=== PATIENT | male | born 1960 | race Caucasian/White ===

== ENCOUNTER 2018-10-02 15:32 | Inpatient (IN) ==
[2018-10-02] MEDS ORDERED: DUONEB (A & A) INH ONE (15:54)
[2018-10-02 16:24] LABS: BASO# 0.04 X1000 (0.0-0.2); BASO% 0.4 % (0.0-0.8); EOS% 6.2 % (0.0-10.0); HEMATOCRIT 40.2 % (42.0-52.0); HEMOGLOBIN 13.5 g/dL (14.0-18.0); IMM GRAN# 0.02 X1000 (0.0-0.04); IMM GRAN% 0.2 % (0.0-0.5); LYMPH# 1.61 X1000 (1.2-3.4); LYMPH% 16.5 % (20.5-51.1); MCH 31.9 PG (27-31); MCHC 33.6 g/dL (33-37); MONO# 0.67 X1000 (0.11-0.59); MONO% 6.9 % (1.7-9.3); MPV 8.7 FL (7.4-10.4); NEUT% 69.8 % (42.2-75.2); PLT 244 X1000 (130-400); RBC 4.23 XMIL (4.7-6.1); RDW 14.2 % (11.5-14.5); WBC 9.74 X1000 (4.8-10.8)
[2018-10-02 16:29] LABS: INR 0.93; PROTIME 12.9 Seconds (11.0-16.0)
[2018-10-02 16:30] LABS: PTT 29.2 Seconds (22.3-41.8)
[2018-10-02] MEDS ORDERED: SOLU-MEDROL IV ONE (16:30)
[2018-10-02 16:39] LABS: AGAP 15; ALBUMIN 3.8 g/dL (3.5-5.0); ALKALINE PHOSPHATASE 88 U/L (32-122); BUN 13 mg/dL (8-22); CALCIUM 8.5 mg/dL (8.8-10.2); CHLORIDE 99 mmol/L (98-107); COSMO 272; CREATININE 0.7 mg/dL (0.7-1.2); ESTIMATED GFR > 60; GLUCOSE 103 mg/dL (70-104); GOT 22 U/L (10-34); GPT 12 U/L (10-44); POTASSIUM 4.4 mmol/L (3.5-5.1); SODIUM 136 mmol/L (136-145); TCO2 23 mmol/L (25-35)
--- NOTE | 2018-10-02 17:01 | Diag Imaging Result Doc PS360 ---
CHEST-2 VIEWS - 10/02/2018 INDICATION: cough COMPARISON: 08/05/2018 FINDINGS: There is a stable calcified granuloma in the left lower lobe. The lungs are clear. Heart size is normal. No pneumothorax or pleural effusion. IMPRESSION: Negative exam. Electronically signed by Mateo Arias 10/02/2018 4:59 PM
[2018-10-02 17:15] LABS: CK INDEX 3.6 (0.0-2.5); CK PROFILE 481 U/L (24-204); CK-MB 17.09 ng/mL (0.0-5.0)
[2018-10-02 17:27] LABS: BE 2.4 mmoll (-3.0-3.0); BLOOD TYPE ARTERIAL; HCO3-(ACT) 26.6 mmoll (20.0-26.0); METHB 1.3 % (0.0-1.5); O2(CT) 17.4 mL/dL (15.0-23.0); O2HB 90.9 % (95.0-99.0); PCO2(98.6) 42 mmHg (35-45); PO2(98.6) 60 mmHg (60-100); SAMPLE BLOOD; SAO2 94.4 % (95.0-100.0); THB 13.6 g/dL (11.5-17.4); pH(98.6) 7.42 (7.35-7.45)
[2018-10-02 17:30] LABS: ALLEN TEST YES; MODALITY ROOM AIR
--- NOTE | 2018-10-02 17:57 | PROVIDER DOCUMENTATION ---
This chart was entered by Hazel Fuchs Scribe, acting as scribe for Fredis Arnett CRNP. HPI-Respiratory General - General Chief Complaint: Cough Stated Complaint: COUGHING/COPD Time Seen by Provider: 10/02/18 15:50 Source: patient Allergies/Adverse Reactions: Patient Allergies Allergy/AdvReac Type Severity Reaction Status Date / Time No Known Allergies Allergy Verified 08/05/18 19:41 Home Medications: Home Medication List Medication Instructions Recorded Confirmed Last Taken Type Lisinopril/Hydrochlorothiazide 1 tab PO BID 02/12/17 08/05/18 08/02/18 10:00 History [Lisinopril-Hctz 20-12.5 mg Tab] Ibuprofen [Motrin] 600 mg PO Q6-8H PRN PRN #30 tab 12/01/17 08/05/18 Unknown Rx Omeprazole 20 mg PO DAILY #20 tablet. 01/18/18 08/05/18 08/02/18 10:00 Rx Albuterol Sulfate [Proventil Hfa] 2 puff IH Q4HR PRN #1 [email or web address] 03/21/18 08/05/18 08/05/18 19:30 Rx Hydrocodone/Acetaminophen [[place] 1 ea PO Q4-6H PRN PRN 7 Days #15 08/05/18 Unknown Rx 7.5-325 Tablet] tab - History of Present Illness-Resp Nature of Presenting Problem: 58 y/o male presents to ED with cough, SOB, chest wall pain, hoarseness, and chills onset 2 months ago. Pt reports he had a breathing treatment this morning. Pt is alert and oriented. Quality of Pain: reports: aching Severity in ED: reports: mild Onset/Duration: reports: other (2 months ago) Timing: reports: still present Context: reports: other (hx COPD) Exposure: reports: other (hx COPD) Cough Quality/Degree: reports: moderate Episode Frequency: chronic episodes (hx COPD) Current Respiratory Medication Therapy: Initiated see nurses note Modifying Factors: improves with: nothing Associated Symptoms: reports: chest pain/soreness, cough, fever/chills, shortness of breath, short of breath, other (hoarse) Similar Symptoms Previously?: No Recently seen or treated by another doctor?: No Review of Systems - Adult - REVIEW OF SYSTEMS - ADULT Constitutional: reports: chills. denies: fever Eyes: reports: no symptoms reported Ears, Nose, Mouth & Throat: reports: hoarseness. denies: epistaxis Cardiovascular: denies: chest pain, palpitations Respiratory: reports: cough, shortness of breath Gastrointestinal: denies: abdominal pain, diarrhea, nausea, vomiting Genitourinary: reports: no symptoms reported Musculoskeletal: reports: other (chest wall pain). denies: back pain, joint pain Integumentary: reports: no symptoms reported Neurological: denies: dizziness/vertigo, seizure Psychiatric: reports: no symptoms reported Endocrine: reports: no symptoms reported Hematologic/Lymphatic: reports: no symptoms reported Allergic/Immunologic: reports: no symptoms reported All Other Systems: Reviewed and Negative Past History - Adult - PAST MEDICAL HISTORY-ADULT Review of Records: reports: Old Records Reviewed, Nursing Assessment Review, Medications Reviewed Major Childhood Illnesses: reports: denies history Cardiovascular: reports: blood clots, HTN. denies: cardiac disease Respiratory: reports: asthma, COPD Gastrointestinal: reports: GERD, hepatitis (C) Obstetrical/Gynecological: reports: denies history Genitourinary: reports: cancer (bladder), chronic UTI's, other (blood clots) Musculoskeletal: reports: chronic pain Neurological: reports: denies history Endocrine/Immune: reports: denies history. denies: Diabetes Other Conditions: reports: denies history - PRIOR SURGERIES/PROCEDURES Surgical/Procedure History: reports: recent surgery, orthopedic (extremity) (knee; R hand), other (malignant tumor removed from bladder) - IMMUNIZATION STATUS Childhood Immunizations: See Nurse Assessment Flu Vaccine: See Nurse Assessment - FAMILY HISTORY Family History: reviewed, not pertinent - SOCIAL HISTORY Smoking: less than 1 pack/day Provider spent 3-5 mins advising pt. on dangers of tobacco.: Discussed manners to quit use, and f/u contacts for add'l counseling. Substance Use: none/never Alcohol Use Frequency: never Living Situation: family Physical Exam-General - PHYSICAL EXAM-ADULT Initial Vital Signs Reviewed: Yes - CONSTITUTIONAL General Appearance: appears well, alert, moderate distress - EYES Eyes: PERRL/EOMI, pink conjunctivae - HEAD, EARS, NOSE, MOUTH & THROAT HENMT: normocephalic/atraumatic, moist mucous membranes, normal ENT inspection - NECK Neck: non-tender, full range of motion - RESPIRATORY Respiratory: chest non-tender, normal breath sounds, wheezing - CARDIOVASCULAR Cardiovascular: normal peripheral pulses, regular rate, rhythm - GASTROINTESTINAL (ABDOMEN) Abdominal Exam: normal bowel sounds, non tender, soft - MUSCULOSKELETAL Back Exam: normal inspection, no CVA tenderness Extremity: normal range of motion, non-tender, normal gait, swelling (chronic 2 plus pitting bilateral lower extremity edema) - SKIN Integumentary: normal color, warm/dry - NEUROLOGIC Neurologic: grossly normal - PSYCHIATRIC Psych/Mental Status: normal mood/affect, normal thought content, normal thought process - HEART Score HEART Score: History: Slightly Suspicious HEART Score: Age: 45-65 Years HEART Score: Risk Factors for Atherosclerotic Disease: > or = 3 Risk Factors or History of Atherosclerotic Disease HEART Score: Troponin: < or = Normal Limit Progress - PLAN OF CARE/RESULTS Progress/Plan/Lab Results: Vital Signs - 8 hr 10/02/18 15:35 10/02/18 16:07 10/02/18 17:15 Temperature 98.9 F 98.9 F Pulse Rate 90 88 92 H Respiratory Rate 24 24 24 Blood Pressure 185/97 166/58 O2 Sat by Pulse Oximetry 95 93 L 91 L Laboratory Results - last 24 hr 10/02/18 10/02/18 10/02/18 15:50 15:50 15:50 WBC 9.74 RBC 4.23 L Hgb 13.5 L Hct 40.2 L MCV 95.0 MCH 31.9 H MCHC 33.6 RDW Std Deviation 14.2 Plt Count 244 MPV 8.7 Immature Gran % (Auto) 0.2 Neut % (Auto) 69.8 Lymph % (Auto) 16.5 L [place] % (Auto) 6.9 Eos % (Auto) 6.2 Baso % (Auto) 0.4 Immature Gran # (Auto) 0.02 Neut # (Auto) 6.80 H Lymph # (Auto) 1.61 [place] # (Auto) 0.67 H Eos # (Auto) 0.60 Baso # (Auto) 0.04 PT INR PTT (Actin FS) Specimen Type Sample Site pH pCO2 pO2 HCO3 Base Excess Oxyhemoglobin ABG O2 Sat (Calculated) ABG O2 Saturation ABG Carboxyhemoglobin ABG Methemoglobin William Test A-a O2 Difference Total Hemoglobin Lactate Blood Gas Modality FiO2 % Sodium 136 Potassium 4.4 Chloride 99 Carbon Dioxide 23 L Anion Gap 15 BUN 13 Creatinine 0.7 Estimated GFR/1.73 m2 > 60 BUN/Creatinine Ratio 19 Glucose 103 Calculated Osmolality 272 Calcium 8.5 L Total Bilirubin 0.30 AST 22 ALT 12 Alkaline Phosphatase 88 Creatine Kinase 481 H Creatine Kinase Index 3.6 H CK-MB (CK-2) 17.09 H Troponin T Xcc-L-Dkgzzroavud Pept 204 H Total Protein 7.0 Albumin 3.8 Globulin 3.0 Albumin/Globulin Ratio 1.0 10/02/18 10/02/18 10/02/18 15:50 15:50 17:15 WBC RBC Hgb Hct MCV MCH MCHC RDW Std Deviation Plt Count MPV Immature Gran % (Auto) Neut % (Auto) Lymph % (Auto) [place] % (Auto) Eos % (Auto) Baso % (Auto) Immature Gran # (Auto) Neut # (Auto) Lymph # (Auto) [place] # (Auto) Eos # (Auto) Baso # (Auto) PT 12.9 INR 0.93 PTT (Actin FS) 29.2 Specimen Type ARTERIAL Sample Site R RADIAL pH 7.42 pCO2 42 pO2 60 HCO3 26.6 H Base Excess 2.4 Oxyhemoglobin 90.9 L ABG O2 Sat (Calculated) 17.4 ABG O2 Saturation 94.4 L ABG Carboxyhemoglobin 2.40 ABG Methemoglobin 1.3 William Test YES A-a O2 Difference 37.0 Total Hemoglobin 13.6 Lactate 0.70 Blood Gas Modality ROOM AIR FiO2 % 21.0 Sodium Potassium Chloride Carbon Dioxide Anion Gap BUN Creatinine Estimated GFR/1.73 m2 BUN/Creatinine Ratio Glucose Calculated Osmolality Calcium Total Bilirubin AST ALT Alkaline Phosphatase Creatine Kinase Creatine Kinase Index CK-MB (CK-2) Troponin T < 0.010 Qbf-H-Ampexfedcjv Pept Total Protein Albumin Globulin Albumin/Globulin Ratio Orders Category Date Time Status Cardiac Monitoring DIRECTED Care 10/02/18 15:41 Active Oxygen Therapy- ED Nursing DIRECTED Care 10/02/18 15:41 Active Saline Loc NOW Care 10/02/18 15:41 Active CHEST-2 VIEWS [RAD] Stat Exams 10/02/18 15:41 Completed ABG [RESP] Routine Lab 10/02/18 17:15 Completed CBC WITH ELECTRONIC DIFF [HEME] Stat Lab 10/02/18 15:50 Completed CK PROFILE [SP CHEM] Stat Lab 10/02/18 15:50 Completed COMPREHENSIVE METABOLIC PANEL [CHEM] Stat Lab 10/02/18 15:50 Completed PRO B-NATRIURETIC PEPTIDE Stat Lab 10/02/18 15:50 Completed PROTIME WITH INR [COAG] Stat Lab 10/02/18 15:50 Completed PTT [COAG] Stat Lab 10/02/18 15:50 Completed SPUTUM CULTURE WITH GRAM STAIN [RM] Routine Lab 10/02/18 16:07 Ordered TROPONIN T Stat Lab 10/02/18 15:50 Completed Albuterol 2.5MG/Ipratrop 0.5MG [Duoneb (A & A)] Med 10/02/18 15:54 Discontinued 9 ml INH NOW ONE Methylprednisolone Sod Succ [Solu-Medrol] Med 10/02/18 16:30 Discontinued 125 mg IV NOW ONE Aerosol Treatments Routine Oth 10/02/18 15:54 Completed Aerosol Treatments Stat Oth 10/02/18 15:54 Completed CP/SOB/Palp >45 yrs of Age Stat Oth 10/02/18 15:41 Ordered EKG [EKG] Stat Ther 10/02/18 15:41 Ordered EKG [EKG] Stat Ther 10/02/18 17:38 Ordered Result Diagrams: 10/02/18 15:50 10/02/18 15:50 - REASSESSMENT Reassessment #1 Time Reassessed: 17:07 (Wheeze/rhonchi still noted on auscultation but has improved some. O2 sat 92% on RA. Will obtain ABG and reassess) Reassessment #2 Time Reassessed: 17:54 (Spoke with pt regarding possible admission status, Pt states he prefers to be admitted. ) - EKG 1 Time of EKG reading by physician:: 17:41 EKG Read and Signed by:: Say New EKG Interpretation (*Must complete 3 of following elements*): Normal Rate: 88 Rhythm: NSR [place]: normal QRS: normal MA Interval: normal ST Wave: normal - XRAY 1 XRAY Study: Chest Impression: Normal (FINDINGS: There is a stable calcified granuloma in the left lower lobe. The lungs are clear. Heart size is normal. No pneumothorax or pleural effusion. IMPRESSION: Negative exam. Electronically signed by Mateo Arias 10/02/2018 4:59 PM), See EMR Report (There is a stable calcified granuloma in the left lower lobe. The lungs are clear. Heart size is normal. No pneumothorax or pleural effusion. IMPRESSION: Negative exam. Electronically signed by Mateo Arias 10/02/2018 4:59 PM) - CONSULTS/PCP/HOSPITALIST Notification #1 *Consult/PCP/Hospitalist*: Dr Farnsworth Time Discussed: 17:45 (Spoke with Dr Farnsworth about possible admission, states he feels possibly could go home or could be admitted for COPD exacerbation. Will consult with pt to see pt preference) Consult Disposition: Admit Departure - Departure Date of Disposition Decision: 10/02/18 Time of Disposition Decision: 17:56 DIAGNOSIS: COPD exacerbation Disposition: ADMITTED INPATIENT 09 Certified Medical Emergency: Emergent Condition: Fair Referrals and Follow-Ups: Altaf Albert CRNP [Primary Care Provider] - Discharge Education: Steps to Quit Smoking, [id number] - Critical Care Note This patient required my direct & personal management of CC.: No Attestation - Physician/ [place] Attestation Patient care was provided by Advanced Practice Provider:: Yes Advanced Practice Provider:: Fredis Arnett Advanced Practice Provider documentation review:: The Mid-level provider documentation, treatment plan and medical decision making was reviewed by the physician who agrees with all treatment and medical decision making by the MLP. The physician spent face to face time with patient:: No Advanced Practice Provider documentation review:: Supervising physician onsite and consulted in the evaluation and care of this patient. The physician did not have a face to face encounter with the patient. This chart was documented by the indicated scribe, (Hazel Fuchs Scribe) and accurately reflects the services I performed and decisions made by me, Fredis Arnett CRNP, as attested by the provider's signature.
[2018-10-02] MEDS: DUONEB (A & A) INH PRN (20:16)
[2018-10-02] MEDS ORDERED: TYLENOL PO PRN (21:52)
[2018-10-02] MEDS: DUONEB (A & A) INH SCH (22:51)
[2018-10-02] MEDS: NORCO-7.5 PO PRN (23:35)
[2018-10-02] MEDS: LOVENOX SUBQ SCH (23:35)
[2018-10-02] MEDS: ROCEPHIN 1 GM in NS 50 ML IV SCH (23:35)
[2018-10-03] MEDS: SOLU-MEDROL IV SCH ×3 (02:10→16:48)
[2018-10-03] MEDS: DUONEB (A & A) INH SCH ×6 (03:25→23:06)
[2018-10-03] MEDS: PRILOSEC PO SCH (10:08)
[2018-10-03] MEDS: HYDROCHLOROTHIAZIDE PO SCH ×2 (10:08→21:00)
[2018-10-03] MEDS: PRINIVIL PO SCH ×2 (10:09→21:00)
--- NOTE | 2018-10-03 10:23 | HISTORY AND PHYSICAL ---
PRIMARY CARE PROVIDER: DESIRE Campos. CHIEF COMPLAINT: Cough, shortness of breath, chills, and some chest wall pain for 2 months that have progressively worsened over the past several days. HISTORY OF PRESENTING ILLNESS: This is a 58-year-old male, who presents to [facility] ER with complaints of a cough that is productive of a thick yellowish sputum, shortness of breath worsens with exertion, chest wall pain secondary to his cough, and chills that have been present for the past couple months, but progressively worsened over the last several days. States he continues to smoke half a pack of cigarettes a day. In his workup on arrival, he had an O2 saturation of 95% on room air. His laboratory data was unremarkable except he did have a little bump in his creatine kinase at 481, CK-MB of 17.09, but a negative troponin. His chest x-ray was negative. He is noted to have wheezing throughout his entire posterior lung [place] so he is being admitted for an acute chronic obstructive pulmonary disease exacerbation for further evaluation and treatment. PAST MEDICAL HISTORY: COPD, blood clots, hypertension, GERD, hepatitis C, bladder cancer, chronic UTI, and chronic pain. PAST SURGICAL HISTORY: A knee surgery, right hand surgery, and a tumor removed from his bladder. FAMILY HISTORY: Reviewed and noncontributory. SOCIAL HISTORY: He currently lives with family. Smokes a half a pack of cigarettes a day. Denies any alcohol or illicit drug use. ALLERGIES: He has no known drug allergies. HOME MEDICATIONS: We will need to update and confirm his home medication, and then we will review and restart as appropriate. DIAGNOSTIC STUDIES: Laboratory data showed a white blood cell count of 9.74, hemoglobin 13.5, hematocrit 40.2, platelets 244,000. PT 12.9 and INR 0.93. ABG with a pH of 7.42, pCO2 of 42, PO2 of 60, bicarbonate 26.6, and this was on room air. Sodium 136, potassium 4.4, chloride 99, CO2 of 23, BUN of 13, creatinine 0.7, glucose 103. His creatine kinase was 481 with a CK-MB of 17.09, but a negative troponin of less than 0.010. Chest x-ray was negative. REVIEW OF SYSTEMS: He denied any fever. He has been positive for chills, a productive cough, shortness of breath, chest wall pain secondary to his coughing. Denied any abdominal pain, constipation, diarrhea, or burning or hurting with urination. PHYSICAL EXAMINATION: VITAL SIGNS: On arrival he had a temperature of 98.9 degrees, pulse 90, respirations 24, blood pressure 185/97, saturating 95% on room air. GENERAL: This is a 58-year-old male who is sitting up in the bed and answers questions appropriately. HEMNT: Normocephalic, atraumatic. Normal ENT inspection. Oropharynx and nares are clear. EYES: Pupils are equal, round, and reactive to light and accommodation. Extraocular movements are intact. NECK: Normal inspection. Normal range of motion. LUNGS: With wheezing throughout entire posterior lung field. Equal lung expansion and chest wall movement. Productive cough is noted of thick yellow sputum. HEART: Regular rate and rhythm. No murmurs, rubs, or gallops. ABDOMEN: Soft, nontender, nondistended. Bowel sounds are present x4 quadrants. MUSCULOSKELETAL: He has 5/5 strength x4 extremities. NEUROLOGICAL: The cranial nerves 2-12 are grossly intact. ASSESSMENT: 1. Acute chronic obstructive pulmonary disease exacerbation. 2. Hypertension. 3. Tobacco abuse. 4. Gastroesophageal reflux disease (GERD), history of. PLAN: He is being admitted to the medical unit at [place]. Placed on healthy heart diet. We are going to obtain a sputum culture. Place on Lovenox 40 mg subcutaneous q.24 h[address]VT prophylaxis. Place on DuoNeb q.4 h. routinely and q.[address] on Solu-Medrol 80 mg IV q.8 h. and wean as he improves, Rocephin 1 gram IV q.24 h. We will check another cardiac profile this morning and recheck a CBC, BMP in the a.m. Dictated by DESIRE Andrews for Sen Farnsworth MD cc: DESIRE Andrews MD
[2018-10-03 10:43] LABS: CK INDEX 3.7 (0.0-2.5); CK-MB 16.97 ng/mL (0.0-5.0)
--- NOTE | 2018-10-03 12:21 | HISTORY AND PHYSICAL ---
ADDENDUM: I saw the patient [id number] and fully agree with the assessment and plan of nurse practitioner, Sophia Colon. This is a 58-year-old, gentleman who is admitted with shortness of breath and has been diagnosed as having acute COPD exacerbation. He also has hypertension and tobacco abuse. He will receive nebulization treatments for his COPD exacerbation along with IV Solu-Medrol. He is receiving ceftriaxone intravenously for any associated bacterial infection and we will place him on Lovenox subcutaneously for venous thromboembolism prophylaxis. Further recommendation will be given as per hospital course. cc: Sen Farnsworth MD
--- NOTE | 2018-10-03 17:18 | EKG Report ---
Test Performed on : 10/02/2018 5:41:26 PM Test Reason : CP Blood Pressure : / mmHG Vent. Rate : 088 BPM Atrial Rate : 088 BPM P-R Int : 156 ms QRS Dur : 104 ms QT Int : 356 ms P-R-T Axes : 066 060 058 degrees QTc Int : 430 ms Normal sinus rhythm. Normal ECG When compared with ECG of 05-AUG-2018 20:21, No significant change was found Unconfirmed Result
[2018-10-03] MEDS: LOVENOX SUBQ SCH (21:00)
[2018-10-03] MEDS: ROCEPHIN 1 GM in NS 50 ML IV SCH (21:00)
[2018-10-03] MEDS: NORCO-7.5 PO PRN (21:01)
[2018-10-04] MEDS: SOLU-MEDROL IV SCH ×3 (00:21→15:40)
[2018-10-04] MEDS: DUONEB (A & A) INH SCH ×6 (03:16→22:45)
[2018-10-04] MEDS: PRILOSEC PO SCH (09:18)
[2018-10-04] MEDS: HYDROCHLOROTHIAZIDE PO SCH ×2 (09:19→21:25)
[2018-10-04] MEDS: PRINIVIL PO SCH ×2 (09:19→21:24)
[2018-10-04] MEDS ORDERED: PRINIVIL PO SCH (14:30)
--- NOTE | 2018-10-04 15:59 | PROGRESS NOTE ---
DATE: 10/04/2018 SUBJECTIVE: The patient with no new complaints. Still having some increased work of breathing and shortness of breath, but notes that overall is improved slightly from admission. PHYSICAL EXAM: Temperature 98, pulse 88, respiratory 20, BP 155/94.General: The patient is awake, very pleasant to talk with. HEENT: Normocephalic. Neck: Supple. CARDIOVASCULAR: Regular rate. Chest: Decreased but equal breath sounds. Positive wheezing throughout the posterior bases. Abdomen: Soft, morbidly obese, nontender. Extremities: Moves all extremities. Neurologic: No changes. ASSESSMENT: 1. Chronic obstructive pulmonary disease with acute exacerbation. 2. Hypertension. 3. Morbid obesity. 4. Chronic reflux. 5. Chronic tobacco abuse. PLAN: Continue oxygen, breathing treatments, antibiotics. Continue Solu-Medrol decreased to 60 IV q.8h and will follow. cc: Dick Hood MD
[2018-10-04] MEDS: NORCO-7.5 PO PRN (21:24)
[2018-10-04] MEDS: ROCEPHIN 1 GM in NS 50 ML IV SCH (21:24)
[2018-10-04] MEDS: LOVENOX SUBQ SCH (21:24)
[2018-10-05] MEDS: SOLU-MEDROL IV SCH ×3 (01:30→16:24)
[2018-10-05] MEDS: NORCO-7.5 PO PRN (02:20)
[2018-10-05] MEDS: DUONEB (A & A) INH SCH ×6 (03:12→23:05)
[2018-10-05] MEDS: PRILOSEC PO SCH (06:03)
[2018-10-05 06:53] LABS: HEMATOCRIT 38.9 % (42.0-52.0); HEMOGLOBIN 12.8 g/dL (14.0-18.0); MCH 31.4 PG (27-31); MCHC 32.9 g/dL (33-37); MCV 95.3 FL (81-99); MPV 8.5 FL (7.4-10.4); RBC 4.08 XMIL (4.7-6.1); RDW 14.2 % (11.5-14.5); WBC 14.65 X1000 (4.8-10.8)
[2018-10-05 07:04] LABS: AGAP 12; BUN 25 mg/dL (8-22); CALCIUM 8.7 mg/dL (8.8-10.2); CHLORIDE 95 mmol/L (98-107); COSMO 277; CREATININE 0.9 mg/dL (0.7-1.2); ESTIMATED GFR > 60; GLUCOSE 136 mg/dL (70-104); SODIUM 135 mmol/L (136-145); TCO2 28 mmol/L (25-35)
[2018-10-05] MEDS: HYDROCHLOROTHIAZIDE PO SCH ×2 (08:09→21:16)
[2018-10-05] MEDS: PRINIVIL PO SCH ×2 (08:09→21:16)
[2018-10-05] MEDS ORDERED: LASIX PO SCH (09:00)
[2018-10-05] MEDS: LASIX IV SCH (13:12)
[2018-10-05] MEDS: LOVENOX SUBQ SCH (21:16)
[2018-10-05] MEDS: ROCEPHIN 1 GM in NS 50 ML IV SCH (21:17)
--- NOTE | 2018-10-05 22:47 | PROGRESS NOTE ---
DATE: 10/05/2018 SUBJECTIVE: Patient is a morbidly obese male who currently is in mild respiratory distress. He has significant productive cough this morning. He still has some swelling in his lower extremities. Denies any fevers or chills. OBJECTIVE: Vital signs: Temperature 97.5, pulse 78, respiratory rate 18, BP 133/91. General: Patient is awake, currently in mild respiratory distress, sitting on the side of bed, coughing and spitting into the garbage can. HEENT: Normocephalic. Neck: Supple. Cardiovascular: Regular rate. Chest: Decreased but equal breath sounds. Positive wheezing throughout. No current crackles. Poor air movement but equal. Abdomen: Soft, obese. Extremities: Moves all extremities. 1+ edema. ASSESSMENT: 1. Chronic obstructive pulmonary disease with exacerbation. 2. Hypertension. 3. Chronic tobacco abuse. 4. Morbid obesity. 5. Chronic reflux. 6. Others. PLAN: We will continue patient in the hospital. Continue Solu-Medrol at 60 IV q.8. We will decrease at 40 this afternoon. We will continue to follow. Hopefully home over the next 2 or 3 days. cc: Dick Hood MD
[2018-10-06] MEDS: SOLU-MEDROL IV SCH ×4 (00:21→23:39)
[2018-10-06] MEDS: LASIX IV SCH ×3 (00:22→23:40)
[2018-10-06] MEDS: DUONEB (A & A) INH SCH ×6 (03:18→23:57)
[2018-10-06] MEDS: PRILOSEC PO SCH (06:06)
[2018-10-06 06:55] LABS: HEMATOCRIT 41.9 % (42.0-52.0); HEMOGLOBIN 13.8 g/dL (14.0-18.0); MCH 31.1 PG (27-31); MCHC 32.9 g/dL (33-37); MCV 94.4 FL (81-99); MPV 8.6 FL (7.4-10.4); RBC 4.44 XMIL (4.7-6.1); RDW 14.1 % (11.5-14.5); WBC 13.68 X1000 (4.8-10.8)
[2018-10-06 07:16] LABS: AGAP 14; BUN 28 mg/dL (8-22); CALCIUM 9.2 mg/dL (8.8-10.2); CHLORIDE 95 mmol/L (98-107); COSMO 282; ESTIMATED GFR > 60; GLUCOSE 118 mg/dL (70-104); POTASSIUM 4.3 mmol/L (3.5-5.1); SODIUM 138 mmol/L (136-145); TCO2 29 mmol/L (25-35)
[2018-10-06] MEDS: PRINIVIL PO SCH ×3 (07:41→20:11)
[2018-10-06] MEDS: HYDROCHLOROTHIAZIDE PO SCH ×3 (07:41→20:11)
[2018-10-06] MEDS: ROCEPHIN 1 GM in NS 50 ML IV SCH (20:11)
[2018-10-06] MEDS: NORCO-7.5 PO PRN (20:22)
--- NOTE | 2018-10-06 23:33 | PROGRESS NOTE ---
DATE: 10/06/2018 SUBJECTIVE: Patient notes he is starting to feel a little bit better, still having cough and congestion, but overall is improving. PHYSICAL EXAM: Temperature 97.5 degrees, pulse 82, respiratory 18, BP 147/87.General: Patient is awake, very pleasant to talk with. He is in mild current respiratory distress. He is sitting up on the side of the bed. He is no longer coughing or spitting up as much today as he was yesterday. HEENT: Normocephalic. Neck: Supple. CARDIOVASCULAR: Regular rate. Chest: Improved, still wheezing but better air movement. Diffuse wheezing throughout. No crackles. Abdomen: Soft, obese, nondistended. Extremities: Moves all extremities. Trace edema. ASSESSMENT: 1. Morbid obesity. 2. Acute chronic obstructive pulmonary disease exacerbation. 3. Chronic tobacco abuse. 4. Leukocytosis. PLAN: We will continue patient in hospital. Continue Solu-Medrol, breathing treatments, oxygen, and will follow. cc: Dick Hood MD
[2018-10-06] MEDS: LOVENOX SUBQ SCH (23:39)
[2018-10-07] MEDS: DUONEB (A & A) INH SCH ×6 (02:30→22:41)
[2018-10-07] MEDS: ROCEPHIN 1 GM in NS 50 ML IV SCH ×2 (02:52→20:23)
[2018-10-07] MEDS: DUONEB (A & A) INH PRN (04:21)
[2018-10-07] MEDS: PRILOSEC PO SCH (05:59)
[2018-10-07 06:07] LABS: HEMATOCRIT 41.2 % (42.0-52.0); HEMOGLOBIN 13.9 g/dL (14.0-18.0); MCH 31.4 PG (27-31); MCHC 33.7 g/dL (33-37); MPV 8.5 FL (7.4-10.4); RBC 4.43 XMIL (4.7-6.1); RDW 13.9 % (11.5-14.5); WBC 14.03 X1000 (4.8-10.8)
[2018-10-07 06:28] LABS: AGAP 12; BUN 35 mg/dL (8-22); CALCIUM 8.6 mg/dL (8.8-10.2); CHLORIDE 94 mmol/L (98-107); COSMO 280; CREATININE 1.2 mg/dL (0.7-1.2); ESTIMATED GFR > 60; GLUCOSE 166 mg/dL (70-104); POTASSIUM 4.1 mmol/L (3.5-5.1); SODIUM 134 mmol/L (136-145); TCO2 29 mmol/L (25-35)
[2018-10-07] MEDS: HYDROCHLOROTHIAZIDE PO SCH ×2 (09:30→20:21)
[2018-10-07] MEDS: PRINIVIL PO SCH ×2 (09:30→20:21)
[2018-10-07] MEDS: ROBITUSSIN-AC PO PRN ×3 (09:31→20:39)
[2018-10-07] MEDS: SOLU-MEDROL IV SCH ×2 (09:31→16:40)
[2018-10-07] MEDS: LASIX IV SCH (12:23)
--- NOTE | 2018-10-07 19:03 | PROGRESS NOTE ---
DATE: 10/07/2018 SUBJECTIVE: Patient notes that his cough has improved. It is much less productive. He was able to sleep a little bit last night. Still gets winded with any ambulation. Denies any chest pains, fevers or chills. PHYSICAL EXAMINATION: Vital Signs: Temperature 97.7 degrees, pulse 83, respiratory rate 18, BP 164/86. General: Patient is a morbidly obese male who is currently in mild respiratory distress. HEENT: Normocephalic. Neck: Supple. Cardiovascular: Regular rate. Chest: Greatly decreased breath sounds, but equal bilaterally. Wheezing actually has improved as has his air movement. He is mildly labored, which also is an improvement. Abdomen: Soft, obese. Extremities: Moves all extremities. Trace edema. ASSESSMENT: 1. Chronic obstructive pulmonary disease with exacerbation. 2. Hypoxic respiratory failure. 3. Hypertension. 4. Morbid obesity. 5. Leukocytosis. 6. Chronic tobacco abuse. 7. Chronic reflux. PLAN: Overall, patient has continued to improve. We will decrease Solu-Medrol to 40 IV q.8. We will continue breathing treatments, oxygen, and antibiotics. Hopefully, he can discharge home over the next 1 or 2 days. cc: Dick Hood MD
[2018-10-07] MEDS: LOVENOX SUBQ SCH (21:00)
[2018-10-08] MEDS: ROCEPHIN 1 GM in NS 50 ML IV SCH ×2 (01:22→22:23)
[2018-10-08] MEDS: LASIX IV SCH ×3 (01:23→23:31)
[2018-10-08] MEDS: SOLU-MEDROL IV SCH ×4 (01:24→23:31)
[2018-10-08] MEDS: DUONEB (A & A) INH SCH ×6 (03:05→22:37)
[2018-10-08] MEDS: PRILOSEC PO SCH (06:29)
[2018-10-08] MEDS: ROBITUSSIN-AC PO PRN ×2 (08:01→13:37)
[2018-10-08] MEDS: HYDROCHLOROTHIAZIDE PO SCH ×2 (08:02→20:46)
[2018-10-08] MEDS: PRINIVIL PO SCH ×2 (08:02→20:46)
[2018-10-08] MEDS: LOVENOX SUBQ SCH (22:23)
--- NOTE | 2018-10-08 23:19 | PROGRESS NOTE ---
DATE: 10/08/2018 SUBJECTIVE: Patient notes that his breathing is improved. He is still spitting but not as much. His cough is much improved. Still having shortness of breath with any activity. Still hears himself wheezing. He is not on oxygen chronically at home. PHYSICAL: Temperature 97.8, pulse 81, respiratory 20, BP 148/79, saturation 92% on 2 L.General: Patient is a morbidly obese male who actually improved from a respiratory standpoint from admission. He is sitting on side of the bed, he is able to talk in much better sentences. He is no longer spitting and coughing in the garbage can. HEENT: Normocephalic. Neck: Supple. CV: Regular rate. Chest: Decreased breath sounds bilaterally, positive wheezing faintly bilaterally. Abdomen: Soft, obese, nondistended. Extremities: 2+ edema bilateral this is unchanged. Neuro: No focal neurological changes. ASSESSMENT: 1. Acute chronic obstructive pulmonary disease exacerbation, continues to improve slightly. 2. Morbid obesity. 3. Hypertension. 4. Chronic tobacco abuse. 5. Leukocytosis. 6. Chronic reflux. 7. Chronic lower extremity edema. PLAN: Will continue patient in the hospital, continue symptomatic control, breathing treatments, oxygen, antibiotics. cc: Dick Hood MD
[2018-10-09] MEDS: DUONEB (A & A) INH SCH ×6 (03:06→23:11)
[2018-10-09] MEDS: PRILOSEC PO SCH (06:09)
[2018-10-09 07:22] LABS: BASO# 0.03 X1000 (0.0-0.2); BASO% 0.1 % (0.0-0.8); HEMATOCRIT 44.7 % (42.0-52.0); HEMOGLOBIN 14.9 g/dL (14.0-18.0); IMM GRAN# 0.36 X1000 (0.0-0.04); IMM GRAN% 1.8 % (0.0-0.5); LYMPH# 1.12 X1000 (1.2-3.4); LYMPH% 5.6 % (20.5-51.1); MCH 31.2 PG (27-31); MCHC 33.3 g/dL (33-37); MCV 93.7 FL (81-99); MONO# 1.01 X1000 (0.11-0.59); MPV 8.8 FL (7.4-10.4); NEUT# 17.55 X1000 (1.4-6.5); NEUT% 87.5 % (42.2-75.2); PLT 339 X1000 (130-400); RBC 4.77 XMIL (4.7-6.1); RDW 14.4 % (11.5-14.5); WBC 20.07 X1000 (4.8-10.8)
[2018-10-09 07:35] LABS: CALCIUM 8.6 mg/dL (8.8-10.2); CREATININE 1.3 mg/dL (0.7-1.2); POTASSIUM 4.5 mmol/L (3.5-5.1)
[2018-10-09] MEDS: HYDROCHLOROTHIAZIDE PO SCH ×2 (08:30→20:40)
[2018-10-09] MEDS: PRINIVIL PO SCH ×2 (08:30→20:40)
[2018-10-09 08:34] LABS: LYMPHS 6 % (21-51); MONO 4 % (1-9); SEGS 90 % (42-75)
[2018-10-09] MEDS: SOLU-MEDROL IV SCH ×3 (08:37→23:46)
[2018-10-09] MEDS: ROBITUSSIN-AC PO PRN ×2 (08:37→20:40)
[2018-10-09] MEDS: LASIX IV SCH ×2 (12:22→23:46)
[2018-10-09] MEDS: LOVENOX SUBQ SCH (22:08)
[2018-10-09] MEDS: ROCEPHIN 1 GM in NS 50 ML IV SCH (22:08)
--- NOTE | 2018-10-09 23:11 | PROGRESS NOTE ---
DATE: 09/11/2018 SUBJECTIVE: The patient notes he is feeling a lot better during the day, still having shortness of breath with ambulation, still requiring oxygen at [facility]. He notes his cough is improving. Denies any fevers or chills. OBJECTIVE: Vital Signs: Temperature 97.9, pulse 99, respiratory rate 18, BP 145/75. General: The patient is awake. He is in no current respiratory distress while he is sitting in the bed. He has his feet hung over side and is leaning over the tray table. HEENT: Normocephalic. Neck: Supple. CARDIOVASCULAR: Regular rate although distant due to his body habitus. Chest: Minimal wheezing throughout. Much better air movement than on initial admission. Extremities: Moves all extremities, has 1-2+ edema. This is chronic. Neurologic: No focal changes. Skin: No rashes. ASSESSMENT: 1. Chronic lower extremity edema. 2. Chronic obstructive pulmonary disease, acute on chronic exacerbation. 3. Hypertension. 4. Morbid obesity with likely pickwickian syndrome and I would presumed obstructive sleep apnea which may be contributing if not causing his hypoxemia at night. 5. Chronic tobacco abuse. 6. Leukocytosis. PLAN: We will continue the patient in the hospital. Continue Solu-Medrol at 40 IV q.8h today. Hopefully we can continue to wean this as he tolerates to 40 q.12. We will continue to attempt to wean oxygen as he is not on oxygen at home. Continue antibiotics. I expect that he will be in the hospital 2 or 3 more days. cc: Dick Hood MD
[2018-10-10] MEDS: DUONEB (A & A) INH SCH ×6 (03:46→23:06)
[2018-10-10] MEDS: PRILOSEC PO SCH (06:09)
[2018-10-10 06:25] LABS: BASO# 0.02 X1000 (0.0-0.2); BASO% 0.1 % (0.0-0.8); EOS# 0.02 X1000 (0.0-0.7); EOS% 0.1 % (0.0-10.0); HEMATOCRIT 43.6 % (42.0-52.0); HEMOGLOBIN 14.5 g/dL (14.0-18.0); IMM GRAN# 0.47 X1000 (0.0-0.04); LYMPH# 1.25 X1000 (1.2-3.4); LYMPH% 5.4 % (20.5-51.1); MCH 31.1 PG (27-31); MCHC 33.3 g/dL (33-37); MCV 93.6 FL (81-99); MONO# 1.21 X1000 (0.11-0.59); MONO% 5.2 % (1.7-9.3); MPV 8.9 FL (7.4-10.4); NEUT# 20.34 X1000 (1.4-6.5); NEUT% 87.2 % (42.2-75.2); PLT 297 X1000 (130-400); RBC 4.66 XMIL (4.7-6.1); RDW 14.2 % (11.5-14.5); WBC 23.31 X1000 (4.8-10.8)
[2018-10-10 06:30] LABS: AGAP 10; BUN 46 mg/dL (8-22); CALCIUM 8.3 mg/dL (8.8-10.2); CHLORIDE 95 mmol/L (98-107); COSMO 282; CREATININE 1.2 mg/dL (0.7-1.2); ESTIMATED GFR > 60; GLUCOSE 174 mg/dL (70-104); POTASSIUM 5.1 mmol/L (3.5-5.1); SODIUM 133 mmol/L (136-145); TCO2 28 mmol/L (25-35)
[2018-10-10 07:31] LABS: LYMPHS 5 % (21-51); MONO 4 % (1-9); SEGS 91 % (42-75)
[2018-10-10] MEDS: HYDROCHLOROTHIAZIDE PO SCH ×2 (09:26→20:13)
[2018-10-10] MEDS: SOLU-MEDROL IV SCH ×2 (09:26→20:13)
[2018-10-10] MEDS: PRINIVIL PO SCH ×2 (09:26→20:13)
[2018-10-10] MEDS: LOVENOX SUBQ SCH (21:24)
[2018-10-10] MEDS: ROCEPHIN 1 GM in NS 50 ML IV SCH (21:24)
--- NOTE | 2018-10-10 21:40 | PROGRESS NOTE ---
DATE: 10/10/2018 SUBJECTIVE: Patient notes that he is feeling better. Still requiring oxygen at night. Still gets short of breath and fatigued with minimal activity. PHYSICAL EXAMINATION: Temperature 97.9, pulse 99, respiratory rate 18, BP 145/75, saturation currently 94% on room air.General: Patient is awake, alert. A morbidly obese male who currently is in minimal respiratory distress. HEENT: Normocephalic. Neck: Supple. Cardiovascular: Regular rate. Chest: Clear. Currently no wheezing. Abdomen: Soft, obese. Extremities: 1 to 2+ edema of the lower extremities. ASSESSMENT: 1. Acute chronic obstructive pulmonary disease (COPD) with exacerbation. 2. Hypertension. 3. Chronic tobacco abuse. 4. Morbid obesity. 5. Chronic reflux. 6. Hyperglycemia. 7. Leukocytosis. 8. Elevated BUN. PLAN: We will continue Rocephin. We will stop his IV Lasix as his BUN continues to climb. He has had minimal improvement on his lower extremity edema and does not appear to be in any exacerbation. His white count is elevated at 23, although he has no signs nor symptoms of worsening infection. Most likely ,this is due to his steroids. We will continue to follow. We will decrease Solu-Medrol to 40 q.12 h. Hopefully home over the next 1 to 2 days. cc: Dick Hood MD
[2018-10-11] MEDS: DUONEB (A & A) INH SCH ×6 (03:10→23:05)
[2018-10-11 06:03] LABS: HEMATOCRIT 43.6 % (42.0-52.0); HEMOGLOBIN 14.5 g/dL (14.0-18.0); MCHC 33.3 g/dL (33-37); MCV 93.4 FL (81-99); MPV 8.7 FL (7.4-10.4); RBC 4.67 XMIL (4.7-6.1); RDW 14.2 % (11.5-14.5); WBC 22.48 X1000 (4.8-10.8)
[2018-10-11 06:11] LABS: AGAP 11; ALBUMIN 3.6 g/dL (3.5-5.0); ALKALINE PHOSPHATASE 106 U/L (32-122); BUN 43 mg/dL (8-22); CALCIUM 8.3 mg/dL (8.8-10.2); CHLORIDE 92 mmol/L (98-107); COSMO 274; CREATININE 1.2 mg/dL (0.7-1.2); ESTIMATED GFR > 60; GLUCOSE 145 mg/dL (70-104); GOT 14 U/L (10-34); GPT 26 U/L (10-44); MAGNESIUM 2.7 mg/dL (1.5-2.7); POTASSIUM 5.1 mmol/L (3.5-5.1); SODIUM 130 mmol/L (136-145); TCO2 28 mmol/L (25-35); TOTAL PROTEIN 6.1 g/dL (6.3-8.3)
--- NOTE | 2018-10-11 06:12 | Diag Imaging Result Doc PS360 ---
EXAM: CHEST-2 VIEWS HISTORY: hypoxia TECHNIQUE: Chest two views COMPARISON: 10/02/2018 FINDINGS: The lungs are well expanded except for a tiny amount of atelectasis in the left base. The heart is not enlarged. The vessels are not distended. There are no infiltrates. No pleural effusions. There is a calcified granuloma in the left lung base. There are several old rib fractures. IMPRESSION: Left basilar atelectasis, otherwise no acute abnormality. Electronically signed by Obed Lyon 10/11/2018 6:10 AM
[2018-10-11] MEDS: PRILOSEC PO SCH (06:25)
[2018-10-11] MEDS: PRINIVIL PO SCH ×2 (08:16→23:43)
[2018-10-11] MEDS: HYDROCHLOROTHIAZIDE PO SCH (08:16)
[2018-10-11] MEDS: SOLU-MEDROL IV SCH (08:16)
[2018-10-11] MEDS ORDERED: ROBITUSSIN-AC PO PRN (18:07)
[2018-10-11] MEDS ORDERED: NORCO-7.5 PO PRN (18:07)
--- NOTE | 2018-10-11 18:21 | PROGRESS NOTE ---
DATE: 10/11/2018 SUBJECTIVE: Patient has no focal complaints. OBJECTIVE: Vital signs: Blood pressure 153/84, heart rate of 91, respiratory rate 20, temperature 98.2, 95% on room air. Cardiovascular: Regular rate and rhythm. Pulmonary: Bilateral breath sounds. Clear to auscultation. GI: Soft, nontender, nondistended. Bowel sounds are positive. Extremity: No clubbing or cyanosis. Lymphatic exam: No peripheral edema. Neurological: Nonfocal. LABORATORY DATA: White count is 22, hemoglobin and hematocrit 14 and 43, platelets 160,000. Sodium is 130. BUN and creatinine of 43 and 1.2. Chest x-ray really unremarkable. PROBLEM LIST: 1. Acute chronic obstructive pulmonary disease exacerbation. We will continue Rocephin. He is on steroids. We will wean his steroids. He is on breathing treatments. 2. Hyponatremia, probably related to multiple issues. He is on Lasix. May be related to his Lasix, but he still has some significant lower extremity edema. I am going to give him some Lasix. He is only on hydrochlorothiazide, that is not a good idea, especially with his hyponatremia. 3. Acute hypoxic respiratory failure. He seems to be doing okay. Now I will say that the patient requires O2 possibly with exertion, so we will evaluate for home O2. DISPOSITION: Pending clinical status. Anticipate discharge soon, possibly with home O2. cc: Rogelio Corrales MD
[2018-10-11] MEDS: ROCEPHIN 1 GM in NS 50 ML IV SCH (23:44)
[2018-10-11] MEDS: LOVENOX SUBQ SCH (23:44)
[2018-10-12] MEDS: DUONEB (A & A) INH SCH ×3 (03:19→11:57)
[2018-10-12 05:04] VITALS: BP 130/79
[2018-10-12] MEDS: PRILOSEC PO SCH (06:51)
[2018-10-12] MEDS: LASIX IV SCH ×2 (06:51→07:49)
[2018-10-12 07:26] LABS: BASO# 0.02 X1000 (0.0-0.2); BASO% 0.1 % (0.0-0.8); EOS# 0.16 X1000 (0.0-0.7); EOS% 0.8 % (0.0-10.0); HEMOGLOBIN 14.7 g/dL (14.0-18.0); IMM GRAN# 0.46 X1000 (0.0-0.04); IMM GRAN% 2.4 % (0.0-0.5); LYMPH# 3.91 X1000 (1.2-3.4); MCH 31.5 PG (27-31); MCHC 33.4 g/dL (33-37); MCV 94.2 FL (81-99); MONO# 2.19 X1000 (0.11-0.59); MONO% 11.2 % (1.7-9.3); MPV 9.1 FL (7.4-10.4); NEUT% 65.5 % (42.2-75.2); PLT 276 X1000 (130-400); RBC 4.67 XMIL (4.7-6.1); RDW 14.2 % (11.5-14.5); WBC 19.54 X1000 (4.8-10.8)
[2018-10-12 07:44] LABS: AGAP 11; BUN 43 mg/dL (8-22); CALCIUM 8.3 mg/dL (8.8-10.2); CHLORIDE 93 mmol/L (98-107); COSMO 277; CREATININE 1.2 mg/dL (0.7-1.2); ESTIMATED GFR > 60; GLUCOSE 94 mg/dL (70-104); POTASSIUM 4.9 mmol/L (3.5-5.1); SODIUM 133 mmol/L (136-145); TCO2 29 mmol/L (25-35)
[2018-10-12] MEDS: PRINIVIL PO SCH (07:50)
[2018-10-12] MEDS ORDERED: SOLU-MEDROL IV SCH (09:00)
--- NOTE | 2018-10-12 14:46 | DISCHARGE SUMMARY ---
ADMISSION DATE: 10/02/2018 DISCHARGE DATE: 10/12/2018 The patient on day of discharge he is doing well. Breathing comfortably. He is on room air at 93 to 95 percent. Home O2 evaluation, he only had 95 to 96 percent after exertion. He did not qualify. Breathing is better. No rales. No rhonchi. I feel stable for discharge today. He will be discharged on a course of antibiotics, breathing treatments, Lasix, and Omnicef. He will follow up with PCP who is Altaf Albert. I would strongly recommend nocturnal home O2 testing if that can be arranged. TIME SPENT: A 32 minutes discharge [id number] encounter note with DESIRE Andrews. cc: Rogelio Corrales MD
--- NOTE | 2018-10-12 15:43 | DISCHARGE SUMMARY ---
ADMISSION DATE: 10/02/2018 DISCHARGE DATE: 10/12/2018 PRIMARY CARE PHYSICIAN: EDSIRE Campos. ADMISSION DIAGNOSES: 1. Acute chronic obstructive pulmonary disease exacerbation. 2. Hypertension. 3. Tobacco abuse. 4. History of Gastroesophageal reflux disease. DISCHARGE DIAGNOSES: 1. Acute chronic obstructive pulmonary disease exacerbation, improved. 2. Acute hypoxic respiratory failure, improved. 3. Hyponatremia, improved. SUMMARY OF FINDINGS: This is a 58-year-old male, who presented to the ER with complaints of a cough that was productive of thick yellow sputum, shortness of breath with exertion, some chest wall pain secondary to his cough and chills, that have been present for the past couple months, but progressively worsened over several days prior to arriving. He states he smokes half a pack cigarettes a day. His O2 saturation on arrival was 95%. He had a creatine kinase on arrival of 481, CK-MB was 17.09 but a negative troponin. Chest x-ray was negative. He was wheezing throughout his entire posterior lung [place] so he was admitted placed on O2 per protocol. We got a sputum culture that had gram-negative and gram-positive cocci in it. Repeat after antibiotics shows normal tyrone. He was placed on IV antibiotics, Solu-Medrol and weaned as he improved. His chest x-ray on arrival was negative. Repeat chest x-ray on 10/11/2017 showed some left basilar atelectasis, but otherwise no acute abnormality. We have weaned his steroids. He has responded well to the antibiotic therapy, saturating 93% on room air and it is now felt that he can safely be discharged home. DISCHARGE MEDICATIONS: 1. Omeprazole 20 mg p.o. daily. 2. Prescription for DuoNeb every 6 hours #120 with 1 refill. 3. Proventil inhaler 2 puff inhalation every 4 hours p.r.n. 4. Prescription for cefdinir 300 mg p.o. b.i.d. #14 with no refills. 5. Prescription for Lasix 40 mg p.o. daily #30 with 1 refill. 6. Lisinopril 20 mg p.o. daily. 7. Prescription for prednisone 10 mg p.o. daily #30 with no refills. We did do a home O2 evaluation. He became very short of breath with exertion, and his heart rate increased to 135 and he will have [facility] to come out and evaluate him at home for the need for O2. FOLLOWUP: He will follow up with primary care physician in 1 to 2 weeks and call the office for an appointment. TIME SPENT: 33 minute discharge, Dictated by DESIRE Andrews for Rogelio Corrales MD cc: DESIRE Andrews MD Kevin D. Campbell, CRNP
== END 2018-10-12 14:33 | disposition home or self-care (01) | DRG 190 ==
LOC: P.ED 15:32 → P.MEDSURG 15:32 → SUATTDRO 18:16 → OBSVTOIN 18:16
PROVIDERS: ATTEND Internal Medicine
CPT/HCPCS: 71020; 71046; 80048; 80053; 82550; 82553; 82805; 83735; 83880; 84484; 85025; 85027; 85610; 85730; 87070; 87205; 93005; 94640; 94761; 96374; 99284; A9270; J0696; J1650; J1940; J2920; J2930

== ENCOUNTER 2019-02-07 12:03 | Inpatient (IN) ==
[2019-02-07] MEDS ORDERED: ALBUTEROL NEB INH ONE (12:18)
[2019-02-07] MEDS ORDERED: SOLU-MEDROL IV ONE (12:18)
[2019-02-07 12:58] LABS: BASO# 0.04 X1000 (0.0-0.2); BASO% 0.5 % (0.0-0.8); EOS# 0.44 X1000 (0.0-0.7); EOS% 5.7 % (0.0-10.0); HEMATOCRIT 40.3 % (42.0-52.0); HEMOGLOBIN 13.8 g/dL (14.0-18.0); IMM GRAN# 0.01 X1000 (0.0-0.04); IMM GRAN% 0.1 % (0.0-0.5); LYMPH% 16.8 % (20.5-51.1); MCH 31.4 PG (27-31); MCHC 34.2 g/dL (33-37); MCV 91.6 FL (81-99); MONO# 0.64 X1000 (0.11-0.59); MONO% 8.3 % (1.7-9.3); MPV 8.7 FL (7.4-10.4); NEUT# 5.31 X1000 (1.4-6.5); NEUT% 68.6 % (42.2-75.2); PLT 273 X1000 (130-400); RDW 13.1 % (11.5-14.5); WBC 7.74 X1000 (4.8-10.8)
[2019-02-07 13:14] LABS: AGAP 13; ALBUMIN 4.2 g/dL (3.5-5.0); ALKALINE PHOSPHATASE 73 U/L (32-122); BUN 13 mg/dL (8-22); CALCIUM 8.7 mg/dL (8.8-10.2); CHLORIDE 102 mmol/L (98-107); COSMO 276; CREATININE 0.9 mg/dL (0.7-1.2); ESTIMATED GFR > 60; GLUCOSE 101 mg/dL (70-104); GOT 19 U/L (10-34); GPT 12 U/L (10-44); POTASSIUM 4.4 mmol/L (3.5-5.1); SODIUM 138 mmol/L (136-145); TCO2 23 mmol/L (25-35); TOTAL PROTEIN 6.5 g/dL (6.3-8.3)
[2019-02-07 13:15] LABS: CK PROFILE 717 U/L (24-204)
[2019-02-07 13:33] LABS: INR 0.99; PROTIME 13.6 Seconds (11.0-16.0)
--- NOTE | 2019-02-07 13:35 | Diag Imaging Result Doc PS360 ---
EXAM: CHEST-1 VIEW 02/07/2019 HISTORY: SOB TECHNIQUE: Erect AP portable at 1314 COMMENT: There is a calcified granuloma in the left chest. There are healing fractures of the left sixth and seventh ribs posteriorly. Overall the appearance the chest has not changed significantly since 01/06/2019. IMPRESSION: Stable chest. Electronically signed by Julito Zamora 02/07/2019 1:33 PM
[2019-02-07 13:54] LABS: CK INDEX 1.8 (0.0-2.5); CK-MB 12.63 ng/mL (0.0-5.0)
[2019-02-07] MEDS ORDERED: ROCEPHIN 1 GM in NS 50 ML IV ONE (13:58)
[2019-02-07] MEDS ORDERED: ZITHROMAX 500 MG/NS 500 MG/250 ML IVPB IV ONE (13:59)
[2019-02-07] MEDS ORDERED: DUONEB (A & A) INH ONE (13:59)
--- NOTE | 2019-02-07 14:09 | PROVIDER DOCUMENTATION ---
This chart was entered by Viki Bonilla Scribe, acting as scribe for Tk Clay MD. HPI-Respiratory General - General Chief Complaint: Shortness of Breath Stated Complaint: HEADACHE / SOB / COUGH Time Seen by Provider: 02/07/19 12:15 Source: patient Allergies/Adverse Reactions: Patient Allergies Allergy/AdvReac Type Severity Reaction Status Date / Time No Known Allergies Allergy Verified 01/25/19 21:35 Home Medications: Home Medication List Medication Instructions Recorded Confirmed Last Taken Type Omeprazole 20 mg PO DAILY #20 tablet.dr 01/18/18 11/22/18 08/02/18 10:00 Rx Albuterol Sulfate [Proventil Hfa] 2 puff IH Q4HR PRN #1 hfa.aer.ad 03/21/18 11/22/18 08/05/18 19:30 Rx Lisinopril 1 tab PO DAILY 10/03/18 11/22/18 Unknown History Furosemide [Lasix] 40 mg PO DAILY #30 tab 10/12/18 11/22/18 Unknown Rx Albuterol 2.5MG/Ipratrop 0.5MG 3 ml INH Q4HR 11/22/18 11/22/18 Unknown History [Duoneb] Amoxicillin 875 mg PO BID #20 tab 11/23/18 Unknown Rx Prednisone 10 mg PO BID #14 tab 11/23/18 Unknown Rx Albuterol Sulfate Inhaler 2 puff INH Q6H PRN PRN #1 inhaler 01/06/19 Unknown Rx [Ventolin Hfa] D-Methorphan/P-Epd/Bpm [Bromfed Dm 5 ml PO Q4H PRN #120 ml 01/06/19 Unknown Rx Liquid] Prednisone 20 mg PO DIRECTED #18 tab 01/06/19 Unknown Rx Ciprofloxacin HCl 500 mg PO BID #20 tab 01/25/19 Unknown Rx Hydrocodone/APAP 5 mg/325 mg 1 ea PO Q6H PRN PRN #10 tab 01/25/19 Unknown Rx [[place]-5] Albuterol Sulfate Inhaler 2 puff INH Q6H PRN #1 inhaler 02/07/19 Unknown Rx [Ventolin Hfa] Azithromycin [Zithromax Z-Pio] 250 mg PO DIRECTED #1 pkg 02/07/19 Unknown Rx Prednisone 40 mg PO DAILY 5 Days #10 tab 02/07/19 Unknown Rx - History of Present Illness-Resp Nature of Presenting Problem: 58yom presents to ED cc SOB and weakness for last 3 days that is getting worse. Pt reports he takes nebulizer treatments at home and took one this morning with no relief. Pt denies chest pain. Pt has hx of COPD, asthma, HTN and blood clots. Quality of Pain: reports: tightness Severity in ED: reports: moderate Onset/Duration: reports: 3 days ago Timing: reports: still present Cough Quality/Degree: reports: mild Episode Frequency: chronic episodes Current Respiratory Medication Therapy: Initiated see nurses note Modifying Factors: worse with: exertion, coughing, lying down Associated Symptoms: reports: cough, shortness of breath, short of breath, wheezing Similar Symptoms Previously?: Yes Recently seen or treated by another doctor?: No Review of Systems - Adult - REVIEW OF SYSTEMS - ADULT Constitutional: reports: see HPI, yon. denies: chills, fever Eyes: reports: no symptoms reported Ears, Nose, Mouth & Throat: reports: no symptoms reported Cardiovascular: reports: see HPI. denies: chest pain, irregular heart rate, palpitations Respiratory: reports: see HPI, cough, shortness of breath, wheezing Gastrointestinal: reports: no symptoms reported Genitourinary: reports: no symptoms reported Musculoskeletal: reports: no symptoms reported Integumentary: reports: no symptoms reported Neurological: reports: no symptoms reported Psychiatric: reports: no symptoms reported Endocrine: reports: no symptoms reported Hematologic/Lymphatic: reports: no symptoms reported Allergic/Immunologic: reports: no symptoms reported All Other Systems: Reviewed and Negative Past History - Adult - PAST MEDICAL HISTORY-ADULT Review of Records: reports: Nursing Assessment Review, Medications Reviewed, Social history reviewed & non-contributory. Major Childhood Illnesses: reports: denies history Cardiovascular: reports: blood clots, HTN. denies: cardiac disease Respiratory: reports: asthma, COPD, sleep apnea Gastrointestinal: reports: GERD, hepatitis (C) Obstetrical/Gynecological: reports: denies history Genitourinary: reports: cancer (bladder cancer), chronic UTI's, other (blood clots) Musculoskeletal: reports: chronic pain Neurological: reports: denies history Psychiatric: reports: denies history Endocrine/Immune: reports: denies history. denies: Diabetes Other Conditions: reports: denies history - PRIOR SURGERIES/PROCEDURES Surgical/Procedure History: reports: recent surgery, orthopedic (extremity) (knee; R hand), other (malignant tumor removed from bladder) - IMMUNIZATION STATUS Childhood Immunizations: See Nurse Assessment Flu Vaccine: See Nurse Assessment - FAMILY HISTORY Family History: reviewed, not pertinent - SOCIAL HISTORY Smoking: cigarettes, less than 1 pack/day Provider spent 3-5 mins advising pt. on dangers of tobacco.: Discussed manners to quit use, and f/u contacts for add'l counseling. Physical Exam-General - PHYSICAL EXAM-ADULT Initial Vital Signs Reviewed: Yes - CONSTITUTIONAL General Appearance: appears well, alert, mild distress, obese. negative: anxious, combative - EYES Eyes: PERRL/EOMI, pink conjunctivae. negative: meningismus, pale conjunctivae, photophobia - HEAD, EARS, NOSE, MOUTH & THROAT HENMT: normocephalic/atraumatic, moist mucous membranes, normal ENT inspection. negative: angioedema, hearing deficit - NECK Neck: non-tender, full range of motion, supple, normal inspection. negative: C- spine tenderness - RESPIRATORY Respiratory: chest non-tender, normal breath sounds, no pleuratic chest pain, no respiratory distress, no accessory muscle use, wheezing (bilateral). negative: lungs clear, crackles, rales, rhonchi, stridor - CARDIOVASCULAR Cardiovascular: normal peripheral pulses, regular rate, rhythm, no edema, no gallop, no JVD, no murmur. negative: bradycardia, tachycardia - MUSCULOSKELETAL Extremity: normal range of motion, swelling (bilateral, lower legs) - SKIN Integumentary: normal color, warm/dry. negative: cyanosis, diaphoresis, jaundice - NEUROLOGIC Neurologic: java developer consultant II-XII nml as tested, grossly normal, no motor/sensory deficits. negative: facial droop, focal weakness - PSYCHIATRIC Psych/Mental Status: normal mood/affect, normal thought content, normal thought process, oriented x 3. negative: disoriented x 3, anxious, disheveled, depressed affect - HEART Score HEART Score: History: Slightly Suspicious HEART Score: ECG: Normal HEART Score: Age: 45-65 Years HEART Score: Risk Factors for Atherosclerotic Disease: 1 or 2 Risk Factors HEART Score: Troponin: < or = Normal Limit Total HEART Score:: 2 Progress - PLAN OF CARE/RESULTS Progress/Plan/Lab Results: Vital Signs - 8 hr 02/07/19 12:06 02/07/19 12:14 02/07/19 12:37 Temperature 98.2 F Pulse Rate 100 H 98 H 97 H Respiratory Rate 20 22 21 Blood Pressure 135/85 O2 Sat by Pulse Oximetry 94 L Laboratory Results - last 24 hr 02/07/19 02/07/19 02/07/19 12:40 12:40 12:40 WBC 7.74 RBC 4.40 L Hgb 13.8 L Hct 40.3 L MCV 91.6 MCH 31.4 H MCHC 34.2 RDW Std Deviation 13.1 Plt Count 273 MPV 8.7 Immature Gran % (Auto) 0.1 Neut % (Auto) 68.6 Lymph % (Auto) 16.8 L [place] % (Auto) 8.3 Eos % (Auto) 5.7 Baso % (Auto) 0.5 Immature Gran # (Auto) 0.01 Neut # (Auto) 5.31 Lymph # (Auto) 1.30 [place] # (Auto) 0.64 H Eos # (Auto) 0.44 Baso # (Auto) 0.04 PT 13.6 INR 0.99 PTT (Actin FS) 28.0 Sodium 138 Potassium 4.4 Chloride 102 Carbon Dioxide 23 L Anion Gap 13 BUN 13 Creatinine 0.9 Estimated GFR/1.73 m2 > 60 BUN/Creatinine Ratio 14 Glucose 101 Calculated Osmolality 276 Calcium 8.7 L Total Bilirubin 0.30 AST 19 ALT 12 Alkaline Phosphatase 73 Creatine Kinase 717 H Creatine Kinase Index 1.8 CK-MB (CK-2) 12.63 H Troponin T Total Protein 6.5 Albumin 4.2 Globulin 2.0 Albumin/Globulin Ratio 2.0 Plasma Lactate 02/07/19 02/07/19 12:40 12:40 WBC RBC Hgb Hct MCV MCH MCHC RDW Std Deviation Plt Count MPV Immature Gran % (Auto) Neut % (Auto) Lymph % (Auto) [place] % (Auto) Eos % (Auto) Baso % (Auto) Immature Gran # (Auto) Neut # (Auto) Lymph # (Auto) [place] # (Auto) Eos # (Auto) Baso # (Auto) PT INR PTT (Actin FS) Sodium Potassium Chloride Carbon Dioxide Anion Gap BUN Creatinine Estimated GFR/1.73 m2 BUN/Creatinine Ratio Glucose Calculated Osmolality Calcium Total Bilirubin AST ALT Alkaline Phosphatase Creatine Kinase Creatine Kinase Index CK-MB (CK-2) Troponin T 0.012 Total Protein Albumin Globulin Albumin/Globulin Ratio Plasma Lactate 1.3 Orders Category Date Time Status Cardiac Monitoring DIRECTED Care 02/07/19 12:13 Active IV Insertion ORDERED Care 02/07/19 12:13 Completed Notify MD of + Sepsis Screen NOW Care 02/07/19 12:13 Active Notify Physician ORDERED Care 02/07/19 12:13 Active CHEST-1 VIEW [RAD] Stat Exams 02/07/19 12:16 Completed ABG [RESP] Routine Lab 02/07/19 13:33 Ordered ABG [RESP] Routine Lab 02/07/19 13:35 Ordered BLOOD CULTURE [BLDCUL] Stat Lab 02/07/19 12:47 Ordered CBC WITH DIFF [HEME] Stat Lab 02/07/19 12:40 Completed CK PROFILE [SP CHEM] Stat Lab 02/07/19 12:40 Completed COMPREHENSIVE METABOLIC PANEL [CHEM] Stat Lab 02/07/19 12:40 Completed LACTATE, PLASMA [CHEM] Lab 02/07/19 12:40 Completed LACTATE, PLASMA [CHEM] Lab 02/07/19 15:15 Uncollected LACTATE, PLASMA [CHEM] Lab 02/07/19 18:15 Uncollected PROTIME WITH INR [COAG] Stat Lab 02/07/19 12:40 Completed PTT [COAG] Stat Lab 02/07/19 12:40 Completed TROPONIN T Stat Lab 02/07/19 12:[address] W/POSS RFLX CULT [URINALYSIS] Stat Lab 02/07/19 12:13 Uncollected Albuterol 2.5MG/Ipratrop 0.5MG [Duoneb (A & A)] Med 02/07/19 13:59 Discontinued 3 ml INH NOW ONE Albuterol [Albuterol Neb] Med 02/07/19 12:18 Discontinued 10 mg INH NOW ONE Azithromycin 500 mg/Ns [Zithromax 500 mg/Ns] Med 02/07/19 13:59 Active 500 mg in 250 ml IV NOW CefTRIAXONE [Rocephin] 1 gm Med 02/07/19 13:58 Active 0.9% Sodium Chloride Inj [Ns] 50 ml IV NOW Methylprednisolone Sod Succ [Solu-Medrol] Med 02/07/19 12:18 Discontinued 125 mg IV NOW ONE Aerosol Treatments Routine Oth 02/07/19 12:19 Active Aerosol Treatments Routine Oth 02/07/19 13:59 Active Aerosol Treatments Stat Oth 02/07/19 12:19 Active Aerosol Treatments Stat Oth 02/07/19 13:59 Active Oxygen Device Stat Oth 02/07/19 12:13 Active EKG [EKG] Stat Ther 02/07/19 12:19 Ordered Result Diagrams: 02/07/19 12:40 02/07/19 12:40 - REASSESSMENT Reassessment #1 Time Reassessed: 14:08 Status: other (STILL BILAT WHEEZING. NO CHEST PAIN. PULSE OX DROPS TO 88% RA. DISCUSSED WITH HOSPITALIST WILL ADMIT) - EKG 1 Time of EKG reading by physician:: 13:58 EKG Read and Signed by:: Tk Clay EKG Interpretation (*Must complete 3 of following elements*): Normal Rate: 89 Rhythm: normal sinus QRS: normal MS Interval: normal - XRAY 1 XRAY: Bilateral XRAY Study: Chest Impression: See EMR Report (IMPRESSION: Stable chest. Electronically signed by Julito Zamora 02/07/2019 1:33 PM) - CONSULTS/PCP/HOSPITALIST Notification #1 *Consult/PCP/Hospitalist*: Dr. Corrales Time Discussed: 14:01 Consult Disposition: Admit Departure - Departure Date of Disposition Decision: 02/07/19 Time of Disposition Decision: 14:08 DIAGNOSIS: COPD exacerbation, Acute respiratory failure with hypoxemia Disposition: ADMITTED INPATIENT 09 Certified Medical Emergency: Emergent Condition: Fair Additional Freetext Instructions: RETURN TO ER IF CHEST PAIN, FEVER, SHORT OF BREATH, WEAK, DIZZY. FOLLOW UP WITH YOUR PMD 1-2 DAYS ED Follow Up Instructions: You have been treated by a care provider in the Emergency Department. These instructions are being provided to you so you can have an understanding of how to care for yourself upon discharge. Upon discharge from the Emergency Department, you are responsible for making arrangements for follow-up care by a physician of your choice. Take all prescribed medications as directed. Return to the Emergency Department immediately for any new or worsening symptoms. You may call the Physician Referral phone number at [phone] to obtain a list of Physicians who are taking new patients. Prescriptions: Prednisone 40 mg PO DAILY 5 Days #10 tab Albuterol Sulfate Inhaler [Ventolin Hfa] 2 puff INH Q6H PRN #1 inhaler Azithromycin [Zithromax Z-Pio] 250 mg PO DIRECTED #1 pkg Referrals and Follow-Ups: Tk Albert [Primary Care Provider] - Discharge Education: Chronic Obstructive Pulmonary Disease Exacerbation, [id number], Chronic Obstructive Pulmonary Disease, Steps to Quit Smoking - Critical Care Note This patient required my direct & personal management of CC.: Yes Total Time (mins): 50 Critical Care Statement: This patient required my direct personal management to treat or rule out processes, the absence of which, could potentiallly result in sudden, clinically significant life or limb threatening deterioration. Attestation - Physician/ [place] Attestation Patient care was provided by Advanced Practice Provider:: No The physician spent face to face time with patient:: Yes Advanced Practice Provider documentation review:: Supervising physician onsite and consulted in the evaluation and care of this patient. The physician did have a face to face encounter with the patient. This chart was documented by the indicated scribe, (Viki Bonilla, Eliaz[place]) and accurately reflects the services I performed and decisions made by me, Tk Clay MD, as attested by the provider's signature.
[2019-02-07 14:19] LABS: BLOOD TYPE ARTERIAL; SAMPLE BLOOD
[2019-02-07 14:20] LABS: BE -2.2 mmoll (-3.0-3.0); METHB 1.2 % (0.0-1.5); O2(CT) 18.4 mL/dL (15.0-23.0); PCO2(98.6) 41 mmHg (35-45); PO2(98.6) 65 mmHg (60-100); SAO2 95.4 % (95.0-100.0); THB 14.4 g/dL (11.5-17.4); pH(98.6) 7.36 (7.35-7.45)
[2019-02-07 14:22] LABS: ALLEN TEST YES; MODALITY ROOM AIR
--- NOTE | 2019-02-07 14:37 | EKG Report ---
Test Performed on : 02/07/2019 1:49:58 PM Test Reason : SOB Blood Pressure : / mmHG Vent. Rate : 089 BPM Atrial Rate : 089 BPM P-R Int : 150 ms QRS Dur : 098 ms QT Int : 360 ms P-R-T Axes : 056 050 049 degrees QTc Int : 438 ms Normal sinus rhythm. Normal ECG When compared with ECG of 06-JAN-2019 13:31, No significant change was found Unconfirmed Result
[2019-02-07] MEDS ORDERED: DUONEB (A & A) INH SCH (16:00)
[2019-02-07] MEDS: LOVENOX SUBQ SCH (16:32)
[2019-02-07] MEDS: SOLU-MEDROL IV SCH (18:40)
[2019-02-07] MEDS: LASIX PO SCH (18:41)
--- NOTE | 2019-02-07 19:46 | HISTORY AND PHYSICAL ---
CHIEF COMPLAINT: Shortness of breath. HISTORY OF PRESENT ILLNESS: This is a 58-year-old male with COPD, presenting with shortness of breath for the last 3 days and getting progressively worse. He takes nebulizer treatments at home. He denies brunilda chest pain. He had a little bit, maybe a twinge of left-sided chest pain. He has a productive cough with whitish sputum. Positive chills, but no fevers. He describes progressive dyspnea on exertion for the last several days. He also describes orthopnea or at least he wakes up coughing if he if he lays down flat. Workup in the ER revealed relative hypoxia, tachycardia, and significant bronchospasm. His chest x-ray was clear as far as pneumonia and he was admitted for an acute COPD exacerbation. PAST MEDICAL HISTORY: 1. COPD [id number]. 2. Hypertension. 3. GERD. 4. History of hepatitis C. 5. History of bladder cancer with partial resection. PAST SURGICAL HISTORY: 1. He has had a total knee arthroplasty. 2. Hand surgery. 3. Bladder surgery associated with bladder cancer. FAMILY HISTORY: Positive for hypertension in his father. Mother had diabetes. SOCIAL HISTORY: Two to 3 cigarettes a day currently, but he was a pack and a half day smoker, I am going to say for at least 30 years and maybe even 40 years. I am going to say at least a 30 pack year history of smoking. ALLERGIES: No known drug allergies. MEDICATIONS: He takes DuoNeb q.4, lisinopril 20, and Prilosec 20. REVIEW OF SYSTEMS: Generally: He has had decreased appetite and we are going to continue to monitor him for improvement. No weight loss. No appetite change. Cardiovascular: Regular rate and rhythm. PHYSICAL EXAMINATION: VITAL SIGNS: Blood pressure is 145/92, heart rate of 102, respiratory rate 20, temperature 98.2 degrees, 95% on room air. GENERALLY: Well-developed male in no distress. HEAD EXAM: Was normocephalic, atraumatic. EYE EXAM: Pupils equal, round, reactive to light. Extraocular movements were intact. EAR, NOSE AND THROAT EXAM: He had moist mucous membranes. NECK: Supple. CARDIOVASCULAR: Regular rate and rhythm. PULMONARY EXAM: He had diffuse rhonchi and end-expiratory wheezes throughout his lungs. NEURO EXAM: Was nonfocal. GI: Was soft, nontender, nondistended. Bowel sounds are positive. EXTREMITIES: His he has 2+ pitting edema in both legs. Pedal edema all the way up to his knees. SKIN: Exam was nonfocal. LABORATORY DATA: White count is 7, hemoglobin and hematocrit 13 and 40, platelets 273,000. PH 7.36, pCO2 41, PaO2 65. Basic was normal. CK and MB was mildly elevated with a normal troponin. Chest x-ray was clear except for some granulomas. ASSESSMENT: This is a 58-year-old male with chronic obstructive pulmonary disease, hypertension, presenting with a chronic obstructive pulmonary disease exacerbation. 1. Chronic obstructive pulmonary disease exacerbation. We will continue antibiotics, steroids, breathing treatments, gastrointestinal and deep vein thrombosis prophylaxis and follow. 2. Cardiovascular. There is some concern over possible cor pulmonale. Echocardiogram was done in April 2018 and it looked okay. It has been a little bit of time. I am not entirely sure, we may not need to repeat it. He has peripheral edema. He has orthopnea, but he may have some degree of cor pulmonale. I think I am going to put him on a little bit of Lasix and see how he does, but then subsequently also we may repeat his echocardiogram and see how he does. 3. Hypertension. Continue regular medications and monitor. He sees Altaf Albert at [facility]. cc: Rogelio Corrales MD
[2019-02-07] MEDS: DUONEB (A & A) INH SCH ×2 (20:02→23:15)
[2019-02-08] MEDS: SOLU-MEDROL IV SCH ×4 (00:46→17:19)
[2019-02-08] MEDS: DUONEB (A & A) INH PRN ×2 (03:04→22:21)
[2019-02-08] MEDS: PRILOSEC PO SCH (06:13)
[2019-02-08] MEDS: DUONEB (A & A) INH SCH ×5 (07:37→22:30)
[2019-02-08 07:44] LABS: HEMATOCRIT 42.8 % (42.0-52.0); HEMOGLOBIN 14.3 g/dL (14.0-18.0); IMM GRAN# 0.02 X1000 (0.0-0.04); IMM GRAN% 0.2 % (0.0-0.5); LYMPH% 8.4 % (20.5-51.1); MCH 30.6 PG (27-31); MCHC 33.4 g/dL (33-37); MCV 91.6 FL (81-99); MONO# 0.11 X1000 (0.11-0.59); MPV 8.9 FL (7.4-10.4); NEUT# 9.68 X1000 (1.4-6.5); NEUT% 90.4 % (42.2-75.2); PLT 305 X1000 (130-400); RBC 4.67 XMIL (4.7-6.1); RDW 13.2 % (11.5-14.5); WBC 10.71 X1000 (4.8-10.8)
[2019-02-08 07:47] LABS: AGAP 12; BUN 14 mg/dL (8-22); CHLORIDE 99 mmol/L (98-107); COSMO 280; GLUCOSE 160 mg/dL (70-104); POTASSIUM 4.7 mmol/L (3.5-5.1); SODIUM 138 mmol/L (136-145); TCO2 27 mmol/L (25-35)
[2019-02-08 07:48] LABS: ALBUMIN 4.7 g/dL (3.5-5.0); ALKALINE PHOSPHATASE 78 U/L (32-122); CALCIUM 9.7 mg/dL (8.8-10.2); CREATININE 0.9 mg/dL (0.7-1.2); ESTIMATED GFR > 60; GOT 17 U/L (10-34); GPT 14 U/L (10-44); TOTAL PROTEIN 7.2 g/dL (6.3-8.3)
[2019-02-08] MEDS: PRINIVIL PO SCH (08:39)
[2019-02-08] MEDS: LASIX PO SCH (08:39)
[2019-02-08 08:42] LABS: LYMPHS 8 % (21-51); MONO 2 % (1-9); SEGS 90 % (42-75)
[2019-02-08] MEDS: ROCEPHIN 1 GM in NS 50 ML IV SCH (14:58)
[2019-02-08] MEDS: LOVENOX SUBQ SCH (14:59)
--- NOTE | 2019-02-08 19:54 | PROGRESS NOTE ---
DATE: 02/08/2019 SUBJECTIVE: Patient notes that he feels a little bit better. Still having lots of cough, congestion, lots of wheezing. Denies shortness of breath. PHYSICAL EXAM: Temperature 96, pulse 94, respiratory 18, BP 154/88.General: Patient is a morbidly obese male who unfortunately has been admitted before with COPD. He is still in moderate respiratory distress. HEENT: Normocephalic. Neck: Supple. Cardiovascular: Regular rate. Chest: Decreased breath sounds. Positive wheezing. Abdomen: Soft, obese, nondistended. Extremities: Moves all extremities. Positive edema. Neurologic: No focal changes. ASSESSMENT: 1. Chronic obstructive pulmonary disease with exacerbation. 2. Hypertension. 3. Chronic reflux. 4. Peripheral edema. 5. Orthopnea. PLAN: We will continue patient in the hospital, decrease his Solu-Medrol from 80 to 60 mg q.6 and will follow. Expect he will be in the hospital 3 or 4 more days. cc: Dick Hood MD
[2019-02-09] MEDS: SOLU-MEDROL IV SCH ×4 (00:15→22:15)
[2019-02-09] MEDS: DUONEB (A & A) INH PRN (03:31)
[2019-02-09] MEDS: PRILOSEC PO SCH (06:11)
[2019-02-09] MEDS: DUONEB (A & A) INH SCH ×5 (07:15→23:04)
[2019-02-09] MEDS: LASIX PO SCH (09:30)
[2019-02-09] MEDS: PRINIVIL PO SCH (09:31)
[2019-02-09] MEDS: ROBITUSSIN-AC PO PRN ×3 (11:37→22:15)
[2019-02-09] MEDS: ROCEPHIN 1 GM in NS 50 ML IV SCH (14:02)
[2019-02-09] MEDS: LOVENOX SUBQ SCH (15:50)
--- NOTE | 2019-02-09 20:01 | PROGRESS NOTE ---
DATE: 02/09/2019 SUBJECTIVE: Patient notes he is breathing a little bit easier, less cough, less congestion, but still having significant coughing episodes in which he loses his breath, and feels as though he is going to pass out during these coughing episodes. OBJECTIVE: Vital Signs: Temperature 97.9 degrees, pulse 90, respiratory rate 18, BP 149/77. General: Patient is morbidly obese, very pleasant to talk with, no current respiratory distress. HEENT: Normocephalic. Neck: Supple. Cardiovascular: Regular rate. No murmurs. Chest: Clear, nonlabored. Abdomen: Soft, nondistended. Extremities: Moves all extremities. ASSESSMENT: 1. Chronic obstructive pulmonary disease with exacerbation. Patient currently is clear, although he just finished a breathing treatment. 2. Hypertension. 3. Morbid obesity. 4. Reflux. PLAN: We will continue patient in the hospital. Will slowly wean his Solu-Medrol and will continue to follow. Will give him Robitussin AC for his cough. Further orders as needed. cc: Dick Hood MD
[2019-02-10] MEDS: ROBITUSSIN-AC PO PRN ×4 (01:02→19:57)
[2019-02-10] MEDS: DUONEB (A & A) INH PRN ×2 (01:16→03:16)
[2019-02-10] MEDS: PRILOSEC PO SCH ×2 (05:54→07:26)
[2019-02-10] MEDS: SOLU-MEDROL IV SCH ×3 (05:54→21:33)
[2019-02-10] MEDS: DUONEB (A & A) INH SCH ×5 (07:35→23:03)
[2019-02-10] MEDS: LASIX PO SCH (08:12)
[2019-02-10] MEDS: PRINIVIL PO SCH (08:12)
[2019-02-10] MEDS: ROCEPHIN 1 GM in NS 50 ML IV SCH ×2 (14:14→15:19)
[2019-02-10] MEDS: LOVENOX SUBQ SCH (15:19)
--- NOTE | 2019-02-10 19:45 | PROGRESS NOTE ---
DATE: 02/10/2019 SUBJECTIVE: Patient notes that he is feeling better. Still having cough and congestion. Still had episodes yesterday where he felt as though he is going to pass out after severe coughing. Denies any chest pains. PHYSICAL EXAMINATION: Vital signs: Temperature 98 degrees, pulse 73, respiratory 18, BP 157/93. General: Patient is an obese male who currently is in mild distress. He is improving. HEENT: Normocephalic. Neck: Supple. Cardiovascular: Regular rate. No murmurs. Chest clear, nonlabored. Abdomen: Soft, nondistended, nontender. Extremities: Moves all extremities. Neurologic: No changes. ASSESSMENT: 1. Nausea and vomiting. 2. Chronic obstructive pulmonary disease with exacerbation. 3. Acute hypoxic respiratory failure. 4. Hypertension. 5. Morbid obesity. 6. Insomnia. PLAN: We will continue patient in the hospital. We will decrease his Solu-Medrol to 40 q.8h and we will follow. cc: Dick Hood MD
[2019-02-11] MEDS: DUONEB (A & A) INH PRN (05:16)
[2019-02-11] MEDS: SOLU-MEDROL IV SCH ×3 (05:18→21:41)
[2019-02-11] MEDS: PRILOSEC PO SCH (06:27)
[2019-02-11] MEDS: DUONEB (A & A) INH SCH ×5 (08:03→22:52)
[2019-02-11] MEDS: LASIX PO SCH (08:33)
[2019-02-11] MEDS: PRINIVIL PO SCH (08:33)
[2019-02-11] MEDS: ROBITUSSIN-AC PO PRN ×2 (11:26→23:18)
[2019-02-11 11:31] LABS: BILIRUBIN URINE NEGATIVE (NEGATIVE); BLOOD URINE NEGATIVE (NEGATIVE); GLUCOSE URINE NEGATIVE (NEGATIVE); KETONE URINE NEGATIVE (NEGATIVE); LEUKOCYTES URINE TRACE (NEGATIVE); NITRITE URINE NEGATIVE (NEGATIVE); PROTEIN URINE NEGATIVE (NEGATIVE); UROBILINOGEN URINE NORMAL
[2019-02-11 11:32] LABS: CLARITY SL. CLOUDY (CLEAR); COLOR YELLOW
[2019-02-11 11:35] LABS: URINE EPITHELIAL CELLS <10 /HPF (<10); URINE SOURCE CLEAN CATCH; URINE WBC <10 /HPF (<10)
[2019-02-11] MEDS: LASIX IV SCH ×2 (13:12→21:40)
[2019-02-11] MEDS: ROCEPHIN 1 GM in NS 50 ML IV SCH (14:54)
[2019-02-11] MEDS: LOVENOX SUBQ SCH (16:12)
--- NOTE | 2019-02-11 19:19 | PROGRESS NOTE ---
DATE: 02/11/2019 SUBJECTIVE: The patient notes that he has lots of swelling in his lower extremities. Notes that he has swelling at home as well, but he stopped taking his Lasix because it makes him urinate too much. He denies any fevers. He states he is still having cough, nonproductive. He sometimes loses his breath and feels as though he is going to pass out secondary to the cough. OBJECTIVE: Temperature 97.5 degrees, pulse 79, respiratory 18, BP 154/92.General: The patient is an obese male who is currently in mild respiratory distress, pleasant to talk with. HEENT: Normocephalic. Neck supple. Cardiovascular: Regular rate. No murmurs. Chest: Positive wheezing, mildly labored. Equal air movement, but decreased bilaterally. Extremities: Moves all extremities. He has 2+ edema in his bilateral lower extremities. Skin warm, dry. No rashes. Neurologic: No focal changes. ASSESSMENT: 1. Chronic obstructive pulmonary disease with exacerbation. 2. Chronic pedal edema. 3. Hypertension. 4. Obesity. PLAN: We will continue the patient in the hospital. Continue to follow. We will add Lasix today. Continue breathing treatments. We will not decrease the Solu-Medrol currently. Expect he will be in the hospital 2 or 3 more days. cc: iDck Hood MD
[2019-02-12] MEDS: DUONEB (A & A) INH PRN (03:16)
[2019-02-12] MEDS: SOLU-MEDROL IV SCH ×3 (05:21→21:15)
[2019-02-12] MEDS: PRILOSEC PO SCH (06:28)
[2019-02-12] MEDS: DUONEB (A & A) INH SCH ×5 (07:21→22:59)
[2019-02-12] MEDS: LASIX IV SCH (09:18)
[2019-02-12] MEDS: PRINIVIL PO SCH (10:16)
[2019-02-12] MEDS: ROCEPHIN 1 GM in NS 50 ML IV SCH (14:30)
[2019-02-12] MEDS: LOVENOX SUBQ SCH (17:15)
--- NOTE | 2019-02-12 19:14 | PROGRESS NOTE ---
DATE: 02/12/2019 SUBJECTIVE: The patient notes he is still coughing, although nonproductive. He has had no further presyncopal episodes. Denies any fevers or chills. The swelling in his lower extremities has improved somewhat. He notes that he is urinating quite a lot at times. OBJECTIVE: Temperature 97.7 degrees, pulse 89, respiratory rate 18, BP 156/89.General: The patient is awake. Currently he is in minimal respiratory distress. Appears closer to his baseline. HEENT: Normocephalic. Neck supple. Cardiovascular: Regular rate. Chest clear. Abdomen soft. Extremities: Moves all extremities. Positive edema 2+. ASSESSMENT: 1. Chronic obstructive pulmonary disease with exacerbation. 2. Hypertension. 3. Bilateral lower extremity edema. 4. Obesity. PLAN: Continue the patient in the hospital. IV Lasix, oxygen as needed, breathing treatments and will follow. cc: Dick Hood MD
[2019-02-12] MEDS: ROBITUSSIN-AC PO PRN (23:25)
[2019-02-13] MEDS: DUONEB (A & A) INH PRN (03:28)
[2019-02-13] MEDS: SOLU-MEDROL IV SCH ×2 (05:17→17:14)
[2019-02-13] MEDS: PRILOSEC PO SCH (06:25)
[2019-02-13] MEDS: DUONEB (A & A) INH SCH ×5 (07:29→22:44)
[2019-02-13] MEDS: LASIX PO SCH (11:04)
[2019-02-13] MEDS: PRINIVIL PO SCH (11:04)
--- NOTE | 2019-02-13 15:12 | PROGRESS NOTE ---
DATE: 02/13/2019 SUBJECTIVE: The patient notes that the swelling in his lower extremities is a little bit better again today. He is actually able to get socks on. Notes that he is still having cough and congestion and still having shortness of breath, but did not have any near syncopal episodes during coughing spells yesterday. Denies any chest pain or palpitations. PHYSICAL EXAMINATION: Vital Signs: Temperature 97.6, pulse 73, respiratory 22, BP 123/64. General: Patient is awake, alert, and currently in mild respiratory distress. HEENT: Normocephalic. Neck: Supple. Cardiovascular: Regular rate. Chest: Clear to occasional faint wheezing. Better air movement although still mildly labored; still decreased bilaterally. Abdomen: Soft, obese, nondistended. Extremities: With 2+ edema, although slightly improved from yesterday. His legs are no longer as tight as they were. Skin: Warm and dry, no rashes. ASSESSMENT: 1. Chronic obstructive pulmonary disease with exacerbation. 2. Hypertension. 3. Pedal edema. 4. Chronic tobacco abuse. The patient is currently trying to wean down. PLAN: We will decrease steroids again today and will follow. Hopefully, he will continue to improve and can be discharged over the next 1 or 2 days. cc: Dick Hood MD
[2019-02-13] MEDS: ROCEPHIN 1 GM in NS 50 ML IV SCH (17:13)
[2019-02-13] MEDS: LOVENOX SUBQ SCH (17:14)
[2019-02-13] MEDS: ROBITUSSIN-AC PO PRN (23:35)
[2019-02-14] MEDS: DUONEB (A & A) INH PRN (02:48)
[2019-02-14] MEDS: PRILOSEC PO SCH (05:57)
[2019-02-14] MEDS: SOLU-MEDROL IV SCH (05:57)
[2019-02-14] MEDS: DUONEB (A & A) INH SCH (07:32)
[2019-02-14 07:43] VITALS: BP 158/96
[2019-02-14] MEDS ORDERED: OMNICEF PO SCH (09:00)
[2019-02-14] MEDS: LASIX PO SCH (09:55)
[2019-02-14] MEDS: PRINIVIL PO SCH (09:55)
--- NOTE | 2019-02-15 14:08 | DISCHARGE SUMMARY ---
ADMISSION DATE: 02/07/2019 DISCHARGE DATE: 02/14/2019 ADMISSION DIAGNOSES: 1. Chronic obstructive pulmonary disease exacerbation. 2. Possible cor pulmonale. 3. Hypertension. DISCHARGE DIAGNOSES: 1. Chronic obstructive pulmonary disease exacerbation. 2. Hypertension. 3. Pedal edema. 4. Chronic tobacco abuse. CONSULTATIONS: None. SURGERIES/PROCEDURES: None. HOSPITAL COURSE: Jerrod San is a 58-year-old male, who presented on the 07 of February with complaints of shortness of breath for 3 days progressively worsening. Diagnosis of COPD exacerbation. He uses home oxygen. Also uses nebulizers at home. Productive white sputum and cough. Positive chills, no fevers, but just essentially was having progressive dyspnea on exertion for several days prior to admit. He wakes up coughing if he lays down flat to sleep. Workup in the ER revealed hypoxia, tachycardia and significant bronchospasm. He was ruled out for pneumonia. He was started on antibiotics, steroids, respiratory treatments. He was added on Lasix since he had pedal edema and some orthopnea. Slowly had his Solu-Medrol decreased while he was here. Added Robitussin for the cough until he was stable enough that he was able to go home. PHYSICAL EXAMINATION: Vital Signs: Temperature 97.5 degrees, heart rate 74, respiratory rate 18, blood pressure 158/96, O2 saturation 100% on room air. DISCHARGE LAB DATA: Back on the , white blood cells 10,000, hemoglobin 14, hematocrit 42, platelet count 305. Sodium 138, potassium 4.7, BUN 14, creatinine 0.9, glucose 160, calcium 9.7. On the , had a urinalysis that was slightly cloudy and trace white blood cells, but essentially negative. PERTINENT IMAGING: Chest x-ray on admission: Stable chest. EKG: Normal sinus rhythm, rate 89, QTc 438. DISCHARGE MEDICATIONS: 1. Albuterol and Atrovent nebulizers every 4 hours. 2. Omeprazole 20 mg p.o. daily. 3. Lasix 40 mg p.o. daily. 4. Lisinopril 40 mg p.o. daily. 5. Medrol Dosepak. 6. Omnicef 300 mg p.o. twice daily. DISCHARGE PHYSICIAN FOLLOW UP: Tk Albert. DISCHARGE INSTRUCTIONS: Return to the ER if chest pain, fever shortness of breath, weak, dizzy. Follow up with your primary doctor in 1 to 2 days. If your condition changes, contact physician and/or return to the emergency department. Changes may include, but are not limited to shortness of breath, increased fatigue, excessive bleeding, unexplained weight loss or gain, unimaginable pain, signs/symptoms of infection. DISCHARGE DISPOSITION: Home. Dictated by DESIRE Warren for Dick Hood MD cc: DESIRE Warren MD
--- NOTE | 2019-02-15 21:27 | DISCHARGE SUMMARY ---
ADMISSION DATE: 02/07/2019 DISCHARGE DATE: 02/14/2019 ADDENDUM: Patient seen and examined by myself. Full note dictated and discussed with nurse practitioner. On discharge, the patient is awake. He states that he is feeling much better. Notes that his symptoms have all but resolved. He is feeling better than he has felt in quite some time. His lower extremity edema is better. His wheezing is improved. He has good air movement. We will discharge patient home. Discussed with him that he needs to stay on Lasix as needed for his lower extremities. He needs to avoid smoke and smoke exposure. He is to follow up with his primary care. We will discharge with antibiotics, oxygen, breathing treatments. cc: Dick Hood MD
== END 2019-02-14 10:13 | disposition home or self-care (01) | DRG 191 ==
LOC: P.ED 12:03 → P.MEDSURG 15:09 → SUATTDRO 15:09
PROVIDERS: ATTEND Family Medicine
CPT/HCPCS: 71010; 71045; 80053; 81001; 82550; 82553; 82805; 83605; 84484; 85025; 85610; 85730; 87040; 93005; 94640; 94761; 96374; 96375; 99285; A9270; J0696; J1650; J1940; J2920; J2930